=== PATIENT | male | born 1975 | race Two or more races ===

== ENCOUNTER 2024-12-25 18:52 | Emergency (ER) | payer OTHER ==
[~2024-12-25] VITALS: Ht 180.3 cm; Wt 79.8 kg
[2024-12-25] MEDS ORDERED: FAMOTIDINE (20 MG) 20 MG TABLET ONE (19:20)
[2024-12-25] MEDS: FAMOTIDINE (20 MG) 20 MG TABLET PO ONE (19:21)
[2024-12-25] MEDS ORDERED: PRED50TA PO (20:17)
[2024-12-25 20:26] VITALS: BP 128/82; TEMP 98.3; O2SAT 98
== END 2024-12-25 20:31 | disposition home or self-care (01) ==
LOC: ER 18:57
DX: R06.02 Shortness of breath (principal); Z91.048 Other nonmedicinal substance allergy status
CPT/HCPCS: 99284; 70360; Q0163; J7512